=== PATIENT | male | born 1945 | race Caucasian/White ===

== ENCOUNTER → 2018-05-11 08:27 | Outpatient (CLI) | payer MEDICARE, OTHER, SELFPAY ==
[2018-05-11 09:32] LABS: Alanine Aminotransferase 36 U/L (12-78); Albumin Level 3.8 gm/dL (3.4-5.0); Albumin/Globulin Ratio 1.1 (1.1-1.8); Alkaline Phosphatase 66 U/L (46-116); Anion Gap 12.5 mEq/L (5-15); Aspartate Amino Transferase 17 U/L (15-37); Bilirubin,Total 1.1 mg/dL (0.2-1.0); Blood Urea Nitrogen 20 mg/dL (7-18); Calcium 9.4 mg/dL (8.5-10.1); Carbon Dioxide 32 mmol/L (21.0-32.0); Chloride 100 mmol/L (98-107); Chol/HDL Ratio 3.8 (1-3.5); Cholesterol 150 mg/dL (140-200); Creatinine,Serum 1.26 mg/dL (0.70-1.30); Estimated Glomerular Filt Rate 56 ml/min (>60); GFR (African American) 68 ML/MIN (>60); Globulin 3.4 gm/dl (1.3-3.2); Glucose 130 mg/dL (74-106); HDL Cholesterol 39 mg/dL (27-67); LDL Cholesterol 65 mg/dL (0-130); Potassium 3.5 mmoL/L (3.5-5.1); Sodium 141 mmol/L (136-145); Total Protein,Serum 7.2 gm/dL (6.4-8.2); Triglycerides 232 mg/dL (30-200); VLDL Cholesterol 46 mg/dL (0-40)
== END ==
PROVIDERS: Visit Provider Family Medicine
DX: I10 Essential (primary) hypertension (principal); E78.5 Hyperlipidemia, unspecified; R73.9 Hyperglycemia, unspecified
CPT/HCPCS: 36415; 80053; 80061; 83036

== ENCOUNTER 2020-04-15 21:37 | Emergency (ER) | payer MEDICARE, SELFPAY ==
[2020-04-15 21:38] VITALS: BP 137/73; PULSE 63; RESP 16; TEMP 37; O2SAT 96; BMI 36.6
--- NOTE | 2020-04-15 21:54 | XR_ITS ---
PROCEDURE: XR CHEST 2V Referring Doctor: Onofre Bryson Patient Age:74Y CLINICAL HISTORY: coughing congestion 2 days. COMPARISON: CR RIBUL3 [id number] VIEWS from 08/05/[address] CHEST WO CON from 04/15/2020 FINDINGS: PA and lateral chest performed and compared to a rib series from July 2014 No significant interval change. No new findings. Mild elevation right hemidiaphragm again noted with crowding markings lung bases bilaterally similar to previous study reflecting some mild basilar atelectasis or scarring particularly. Cardiomediastinal silhouette and pulmonary vascularity are within normal limits.. Heart upper normal in size the The lungs appear mildly hyperexpanded but stable/clear; without infiltrates, suspicious nodules, or definite pleural effusions. No acute bony abnormalities. IMPRESSION: Stable chest with nothing definitely acute Perhaps mild hyperexpansion On final review note subtle blunting at the posterior sulcus-nonspecific but could could reflect some mild pleural scarring and atelectasis/or possibly scant pleural fluid but equivocal. The CP angles is remain sharp and clear with no effusion evident here Dictated by: Heladio De Jesus MD 04/16/2020 06:28 Heladio De Jesus MD in [place] 04/16/2020 06:28
[2020-04-15 22:08] VITALS: BP 127/75; PULSE 61; RESP 16; O2SAT 93
--- NOTE | 2020-04-15 22:10 | HMH.EDURI ---
ED Disposition Clinical Impression: Bronchitis Sinusitis Qualifiers: Sinusitis location: maxillary Chronicity: acute Recurrence: not specified as recurrent Qualified Code(s): J01.00 - Acute maxillary sinusitis, unspecified Disposition: Home, Self-Care Condition on Discharge: Good Instructions: DI for Acute Bronchitis Additional Instructions: use meds and see pcp for follow up Prescriptions: levoFLOXacin [Levaquin 500mg tab] 500 mg PO DAILY #7 tab Transmission Status: Received by [id number] predniSONE [Prednisone 20mg Tab] 20 mg PO BID #10 tab Transmission Status: Received by [id number] Referrals: Tim De La Rosa MD [Primary Care Provider] - - Critical Care Critical Care Time: No Attestation: On 04/15/20, the high probability of a clinically significant, sudden or life threatening deterioration of the following system(s) required my full and direct attention, intervention and personal management. The time I documented below is in addition to time spent performing reported procedures but includes the following listed in this critical care notation. Medical Decision Making - Medical Records Medical records reviewed: Yes: I reviewed the patient's medical records. - Jack Inquiry Pt receiving controlled substance: No Vital Signs: 04/15/20 21:38 04/15/20 22:08 04/15/20 22:38 Temperature 98.6 F Temperature Source Oral Pulse Rate Pulse Rate [Right Brachial] 63 61 60 Respiratory Rate 16 16 16 Blood Pressure Blood Pressure [Right Arm] 137/73 127/75 124/69 Blood Pressure Mean [Right Arm] 94 92 87 02 Sat by Pulse Oximetry 96 93 L 96 Oxygen Delivery Method Room Air Room Air 04/15/20 23:00 04/16/20 00:23 Temperature 98.4 F Temperature Source Oral Pulse Rate 86 Pulse Rate [Right Brachial] 66 Respiratory Rate 16 14 Blood Pressure 128/73 Blood Pressure [Right Arm] 114/76 Blood Pressure Mean [Right Arm] 88 02 Sat by Pulse Oximetry 95 Oxygen Delivery Method Room Air - Lab Data Lab results reviewed: Yes: I reviewed the patient's lab results. Lab Results 04/15/20 22:00: WBC 22.8 H*, RBC 5.31, Hgb 16.2, Hct 47.6, MCV 89.7, MCH 30.6, MCHC 34.1, RDW 14.0, Plt Count 256, MPV 8.1, Neut % (Auto) 42.1, Lymph % (Auto) 53.1 H, [place] % (Auto) 3.4, Eos % (Auto) 0.8, Baso % (Auto) 0.6, Neut # (Auto) 9.6 H, Lymph # (Auto) 12.1 H, [place] # (Auto) 0.8, Eos # (Auto) 0.2, Baso # (Auto) 0.1, Total Counted 100, Neutrophils % (Manual) 56, Band Neutrophils % 1.0, Lymphocytes % (Manual) 38, Monocytes % (Manual) 2, Eosinophils % (Manual) 3, Platelet Estimate Normal, RBC Morphology Normal, ESR 20 04/15/20 22:00: Sodium 138, Potassium 3.1 L, Chloride 98, Carbon Dioxide 32 H, Anion Gap 11.1, BUN 18, Creatinine 1.40 H, Estimated Creat Clear 59, Estimated GFR 50 L, Est GFR ( Amer) 60, Glucose 124 H, Calcium 9.5, Total Bilirubin 0.8, AST 28, ALT 20, Alkaline Phosphatase 69, C-Reactive Protein 36.2 H, Total Protein 7.6, Albumin 4.3, Globulin 3.3 H, Albumin/Globulin Ratio 1.3, Procalcitonin 0.065 04/15/20 22:00: Influenza Type A Ag Negative, Influenza Type B Ag Negative 04/15/20 22:00: Group A Strep Rapid Negative 04/15/20 22:00: SARS-CoV-2 IgG Ab (Rapid) Negative, SARS-CoV-2 IgM Ab (Rapid) Negative Result diagrams: 04/15/20 22:00 04/15/20 22:00 Orders (Tests/Meds): ED MEDICATIONS Discontinued Medications Generic Name Dose Route Start Last Admin Trade Name Freq PRN Reason Stop Dose Admin Sodium Chloride 1,000 mls @ 999 mls/hr 04/15/20 22:00 04/15/20 22:52 Sod Chlor 0.9% 1000ml Bag IV 04/15/20 23:00 999 mls/hr .Q1H1M SARAH Administration Ceftriaxone Sodium 1 gm/ 50 mls @ 100 mls/hr 04/16/20 00:15 04/16/20 00:12 Sodium Chloride IV 04/30/20 00:14 100 mls/hr Q24H SARAH Administration Protocol Methylprednisolone Sodium Succinate 125 mg 04/15/20 21:54 04/15/20 22:52 Methylprednisolone Sod Succ 125mg Vial IV 04/15/20 21:55 125 mg ONCE
[2020-04-15 22:32] LABS: Basophils # 0.1 K/mm3 (0-0.2); Basophils % 0.6 % (0.1-2.0); Eosinophils # 0.2 K/mm3 (0.0-0.4); Eosinophils % 0.8 % (0.1-12.0); Hematocrit 47.6 % (42.0-52.0); Hemoglobin 16.2 g/dL (14.1-18.0); Lymphocytes # 12.1 K/mm3 (0.7-4.5); Lymphocytes % 53.1 % (10-50); Mean Corpuscular HGB Conc 34.1 g/dL (31.8-35.4); Mean Corpuscular Hemoglobin 30.6 pg (27.0-31.2); Mean Corpuscular Volume 89.7 fl (80-94); Mean Platelet Volume 8.1 fl (7.4-10.4); Monocytes # 0.8 K/mm3 (0.1-1.0); Monocytes % 3.4 % (1.7-9.3); Neutrophils # 9.6 K/mm3 (1.8-7.8); Neutrophils % 42.1 % (37.0-80.0); Platelet Count 256 K/mm3 (142-424); Red Blood Count 5.31 M/mm3 (4.60-6.20)
[2020-04-15 22:33] LABS: White Blood Count 22.8 K/mm3 (4.8-10.8)
[2020-04-15 22:35] LABS: MANUAL DIFFERENTIAL MANUAL DIFFERENTIAL (MANUAL DIFF)
[2020-04-15 22:38] VITALS: BP 124/69; PULSE 60; RESP 16; O2SAT 96
[2020-04-15 22:49] LABS: Alanine Aminotransferase 20 U/L (12-78); Albumin Level 4.3 g/dl (3.5-5.0); Albumin/Globulin Ratio 1.3 (1.1-1.8); Alkaline Phosphatase 69 U/L (38-126); Anion Gap 11.1 mEq/L (5-15); Aspartate Amino Transferase 28 U/L (17-59); Bilirubin,Total 0.8 mg/dl (0.2-1.3); Blood Urea Nitrogen 18 mg/dl (9-20); Calcium 9.5 mg/dl (8.4-10.2); Carbon Dioxide 32 mmol/L (22.0-30.0); Chloride 98 mmol/L (98-107); Creatinine Clearance Estimated 59 mL/min (50-200); Estimated Glomerular Filt Rate 50 ml/min (>60); GFR (African American) 60 ML/MIN (>60); Globulin 3.3 g/dL (1.3-3.2); Glucose 124 mg/dl (74-100); Potassium 3.1 mmoL/L (3.5-5.1); Sodium 138 mmol/L (136-145); Total Protein,Serum 7.6 g/dl (6.3-8.2)
[2020-04-15 22:52] LABS: Eosinophils % 3 % (0-3); Lymphocytes % 38 % (10-50); Monocytes % 2 % (2-9); Neutrophils % 56 % (42-76); Platelet Estimate Normal; RBC Morphology Normal; Total Cells Counted 100
[2020-04-15 22:54] LABS: C-Reactive Protein 36.2 mg/L (0-4)
--- NOTE | 2020-04-15 22:55 | CT_ITS ---
PROCEDURE: CT CHEST WO CON Referring Doctor: Onofre Bryson Patient Age:74Y CLINICAL INDICATION: cough/abn cxr COMPARISON: No exams were available for comparison TECHNIQUE: No IV contrast Helical axial images obtained with sagittal and coronal reformats. All CT scans at the facility use one or more dose reduction, viz: automated exposure control, ma/kV adjustment per patient size (including targeted exams where dose is matched to indication, i.e. head), or iterative reconstruction technique. FINDINGS: HEART: . upper normal heart size borderline cardiomegaly. No significant pericardial effusion. MEDIASTINAL AND HILAR STRUCTURES: No mediastinal or hilar mass evident. No dominant adenopathy. PULMONARY ARTERIES/aorta: .normal caliber and appearance of these vessels on this noncontrast study but lack of contrast prevents internal valuation of pulmonary arteries or aorta but they appear satisfactory on today's noncontrast study . LUNGS:. No mass or consolidation. . Increased markings at the RLL noted and most likely reflecting dependent atelectasis but this is seen most evident along the posterior aspect of the RLL but also LLL. There may be some minimal scarring in these regions associated. Scant pleural thickening and scarring at the posterior left lung base but no significant mass or consolidation PLEURAL SPACES: No significant pleural effusion. No evidence of pneumothorax. LYMPH NODES: A generous benign-appearing fatty. For example right axillary node measuring just over 3 cm length axillary lymph nodes. UPPER ABDOMEN: . fatty changes the liver. Right kidney: Numerous partially visualized prominent right renal cysts a 6.3 cm cyst at the anterior right kidney with assist a 5 cm cyst as well as a near 6 cm cyst of posterior right kidney Left kidney. 2.2 cm vague debris-filled cyst anterior left kidney but a may benefit from ultrasound to better support is benign cystic nature BONY STRUCTURES: No acute bony abnormalities apparent. No acute skeletal abnormalities or aggressive lesions mild multilevel degenerative changes spine the E.. IMPRESSION: No significant acute findings at the chest No focal pneumonia. No consolidation. No lung masses . Note only note what appears to be minimal dependent atelectasis along posterior aspect of lower lobes bilaterally. Scant chronic pleural thickening posterior left base likely present as well Mild fatty changes liver. Multiple generous right renal cyst, partially imaged . Upper normal thickness and density cyst at the anterior left kidney a 2.2 cm. These would benefit from renal ultrasound follow-up Dictated by: Heladio De Jesus MD 04/16/2020 09:48 Heladio De Jesus MD in [place] 04/16/2020 09:48
--- NOTE | 2020-04-15 22:55 | CT_ITS ---
PROCEDURE: CT SINUS WO CON Referring Doctor: Onofre Bryson Patient Age:74Y CLINICAL HISTORY: congestion/pain Nasal congestion face pain COMPARISON: No exams were available for comparison TECHNIQUE: No IV contrast Helical axial images obtained with axial sagittal and coronal reformats. All CT scans at the facility use one or more dose reduction, viz: automated exposure control, ma/kV adjustment per patient size (including targeted exams where dose is matched to indication, i.e. head), or iterative reconstruction technique. FINDINGS: Right maxillary sinus: Mild mucosal thickening most notable along medial wall and floor right maxillary sinus. Trace scattered mucosal thickening roof and laterally as well.. No air-fluid levels but.. There is mucosal thickening partially occluding the right ostiomeatal outflow pathway and complex but Left maxillary sinus: Left maxillary sinus well developed and clear. Left ostiomeatal complex widely patent and unremarkable. Ethmoid air cells: Moderate mucosal thickening ethmoid air cells bilaterally. Mucosal thickening most evident at the anterior ethmoid air cells and continues through there junction with the frontal sinuses. Frontal sinuses: Only mild mucosal thickening inferiorly at midline and at junction of frontal and ethmoid air cells Sphenoid sinus: Clear no mucosal thickening. Unremarkable Orbits:-unremarkable. Mastoid air cells: Well developed and clear. No mastoid effusion Middle ear and IAC's satisfactory. Unremarkable and symmetric. The cranial cervical junction region satisfactory. There are degenerative disc changes and developing cervical spondylosis of at C3/4, C4/5, C5/6. Findings are most notable at at C5/6 where there is broad base hypertrophic ridging, minimal broad-based hard disc to the left indenting the left aspect of the thecal sac and effacing cord but Scattered small nodes throughout the neck. Streak artifact from dental fillings of limits visualization of some regions, Mild deviation of the nasal septum slight convex to the left. Moderate engorgement of nasal turbinates. IMPRESSION: Mild mucosal thickening right maxillary sinus [id number] mucosal thickening ethmoid air cells,-most notable anteriorly ethmoid air cells.. Mild mucosal thickening from this point extending slightly to the floor of frontal sinuses No air-fluid levels nor prominent findings at the maxillary sinuses Moderate engorgement nasal turbinates, right more so than left. Minor deviation nasal septum. Dictated by: Heladio De Jesus MD 04/16/2020 13:11 Heladio De Jesus MD in [place] 04/16/2020 13:11
[2020-04-15 23:00] VITALS: BP 114/76; PULSE 66; RESP 16; O2SAT 95
[2020-04-15 23:01] LABS: Erythrocyte Sedimentation Rate 20 mm/hr (0-20)
[2020-04-15 23:07] LABS: Procalcitonin 0.065 ng/mL (0.0-2.0)
[2020-04-15 23:36] LABS: Strep Scrn Group A (Rapid) Negative (Negative)
[2020-04-16 00:23] VITALS: BP 128/73; PULSE 86; RESP 14; TEMP 36.9; O2SAT 96
[2020-04-16 00:25] LABS: Coronavirus 19 IgG Antibody Negative (Negative); Coronavirus 19 IgM Antibody Negative (Negative)
== END 2020-04-16 00:24 | disposition home or self-care (01) ==
PROVIDERS: Emergency Provider Emergency Medicine; PCP Family Medicine
DX: J20.9 Acute bronchitis, unspecified (principal); J01.00 Acute maxillary sinusitis, unspecified; Z86.73 Personal history of transient ischemic attack (TIA), and cerebral infarction without residual deficits; I10 Essential (primary) hypertension; Z01.84 Encounter for antibody response examination
CPT/HCPCS: 70486; 71046; 71250; 80053; 84145; 85007; 85025; 85651; 86140; 86328; 87275; 87276; 87430; 96365; 96375; 99284; U0003

== ENCOUNTER 2020-07-01 09:02 | Inpatient (IN) | payer MEDICARE, OTHER, SELFPAY ==
[2020-07-01] VITALS (8 sets, daily range): BP systolic 90–128; BP diastolic 55–68; PULSE 65–96; RESP 18–22; TEMP 36.6–37.3; O2SAT 94–99; BMI 33.3; BMI 32.4
--- NOTE | 2020-07-01 09:11 | XR_ITS ---
PROCEDURE: XR CHEST PORTABLE CLINICAL HISTORY: weakness COMPARISON: CT CT CHEST WO CON from 04/15/2020 CR XR CHEST 2V from 04/15/2020 FINDINGS: The cardiomediastinal silhouette and pulmonary vascularity are within normal limits. The lungs are clear without infiltrates, suspicious nodules, or pleural effusions. No acute bony abnormalities. IMPRESSION: No acute findings. Dictated by: Shine Dickson MD 07/01/2020 11:34 Shine Dickson MD in [place] 07/01/2020 11:34
--- NOTE | 2020-07-01 09:13 | HMH.EDGENADL ---
ED Disposition Clinical Impression: Septic shock Urinary tract infection Qualifiers: Urinary tract infection type: site unspecified Hematuria presence: with hematuria Qualified Code(s): N39.0 - Urinary tract infection, site not specified Disposition: Admitted As Inpatient Condition on Discharge: Serious Referrals: Tim De La Rosa MD [Primary Care Provider] - - Critical Care Critical Care Time: Yes Attestation: On 07/01/20, the high probability of a clinically significant, sudden or life threatening deterioration of the following system(s) required my full and direct attention, intervention and personal management. The time I documented below is in addition to time spent performing reported procedures but includes the following listed in this critical care notation. Vital system(s) involved:: Shock (Septic) My critical care processes included: Assessment & monitoring of V/S, Initial and Re-exams, Data Review/Interpretation, Coordinating Care, Medication Orders and management, Documentation Medical Decision Making - Jack Inquiry Pt receiving controlled substance: No Vital Signs: 07/01/20 09:02 07/01/20 09:39 07/01/20 10:15 Temperature 99.1 F Temperature Source Oral Pulse Rate [Apical] 96 H 84 80 Respiratory Rate 18 18 18 Blood Pressure [Right Arm] 102/56 L 92/55 L 100/55 L Blood Pressure Mean [Right Arm] 71 67 70 Blood Pressure Source [Right Arm] Automatic Cuff Blood Pressure Position [Right Arm] Sitting 02 Sat by Pulse Oximetry 94 L 94 L 94 L Oxygen Delivery Method Room Air Room Air 07/01/20 10:54 07/01/20 11:01 Temperature Temperature Source Pulse Rate [Apical] 82 84 Respiratory Rate 18 20 Blood Pressure [Right Arm] 90/56 L 94/56 L Blood Pressure Mean [Right Arm] 67 68 Blood Pressure Source [Right Arm] Blood Pressure Position [Right Arm] 02 Sat by Pulse Oximetry 94 L 96 Oxygen Delivery Method - Lab Data Lab Results 07/01/20 09:05: WBC 23.8 H*, RBC 5.26, Hgb 15.5, Hct 45.8, MCV 87.0, MCH 29.5, MCHC 33.9, RDW 14.2, Plt Count 216, MPV 8.7, Neut % (Auto) 58.2, Lymph % (Auto) 40.1, [place] % (Auto) 0.9 L, Eos % (Auto) 0.3, Baso % (Auto) 0.4, Neut # (Auto) 13.8 H, Lymph # (Auto) 9.5 H, [place] # (Auto) 0.2, Eos # (Auto) 0.1, Baso # (Auto) 0.1, Total Counted 100, Neutrophils % (Manual) 59, Lymphocytes % (Manual) 40, Monocytes % (Manual) 1 L, Platelet Estimate Normal, RBC Morphology Normal 07/01/20 09:05: Sodium 137, Potassium 3.3 L, Chloride 99, Carbon Dioxide 20 L, Anion Gap 21.3 H, BUN 19, Creatinine 1.30 H, Estimated Creat Clear 64, Estimated GFR 54 L, Est GFR ( Amer) 65, Glucose 182 H, Calcium 9.3, Total Bilirubin 2.0 H, AST 31, ALT 35, Alkaline Phosphatase 80, Troponin I < 0.01, Total Protein 7.3, Albumin 4.5, Globulin 2.8, Albumin/Globulin Ratio 1.6 07/01/20 09:05: Lactate 4.4 H 07/01/20 09:05: Procalcitonin 2.15 H 07/01/20 09:05: Chlamy pneumoniae PCR Not detected, Adenovirus (PCR) Not detected, B. pertussis DNA (PCR) Not detected, Coronavirus OC43 (PCR) Not detected, Coronavirus HKU1 (PCR) Not detected, Coronavirus 229E (PCR) Not detected, SARS-CoV-2 (PCR) Not detected, Coronavirus NL63 (PCR) Not detected, Human Metapneumovir PCR Not detected, Influenza A (H1) PCR Not detected, Influ A (H1N1/09) PCR Not detected, Influenza A (H3) PCR Not detected, Influenza Type A (PCR) Not detected, Influenza Type B (PCR) Not detected, M. pneumoniae (PCR) Not detected, Parainfluenza 1 (PCR) Not detected, Parainfluenza 2 (PCR) Not detected, Parainfluenza 3 (PCR) Not detected, Parainfluenza 4 (PCR) Not detected, RSV (PCR) Not detected, Entero/Rhino (PCR) Not detected 07/01/20 10:20: Urine Color Yellow, Urine Appearance Sl cloudy, Urine pH 5.5, Ur Specific [place] >= 1.030, Urine Protein 1+, Urine Glucose (UA) Negative, Urine Ketones Negative, Urine Blood 1+, Urine Nitrate Positive, Urine Bilirubin Negative, Urine Urobilinogen 0.2, Ur Leukocyte Esterase 2+ A, Urine RBC 5-10, Urine WBC 20-50, Ur Squamous E
--- NOTE | 2020-07-01 09:17 | PC.NURSE ---
rad at BS
[2020-07-01 09:23] LABS: Basophils # 0.1 K/mm3 (0-0.2); Basophils % 0.4 % (0.1-2.0); Eosinophils # 0.1 K/mm3 (0.0-0.4); Eosinophils % 0.3 % (0.1-12.0); Hematocrit 45.8 % (42.0-52.0); Hemoglobin 15.5 g/dL (14.1-18.0); Lymphocytes # 9.5 K/mm3 (0.7-4.5); Lymphocytes % 40.1 % (10-50); Mean Corpuscular HGB Conc 33.9 g/dL (31.8-35.4); Mean Corpuscular Hemoglobin 29.5 pg (27.0-31.2); Mean Platelet Volume 8.7 fl (7.4-10.4); Monocytes # 0.2 K/mm3 (0.1-1.0); Monocytes % 0.9 % (1.7-9.3); Neutrophils # 13.8 K/mm3 (1.8-7.8); Neutrophils % 58.2 % (37.0-80.0); Platelet Count 216 K/mm3 (142-424); Red Blood Count 5.26 M/mm3 (4.60-6.20); Red Cell Distribution Width 14.2 % (11.5-17.5); White Blood Count 23.8 K/mm3 (4.8-10.8)
[2020-07-01 09:26] LABS: MANUAL DIFFERENTIAL MANUAL DIFFERENTIAL (MANUAL DIFF)
[2020-07-01 09:28] LABS: Alanine Aminotransferase 35 U/L (12-78); Albumin Level 4.5 g/dl (3.5-5.0); Albumin/Globulin Ratio 1.6 (1.1-1.8); Alkaline Phosphatase 80 U/L (38-126); Anion Gap 21.3 mEq/L (5-15); Aspartate Amino Transferase 31 U/L (17-59); Blood Urea Nitrogen 19 mg/dl (9-20); Calcium 9.3 mg/dl (8.4-10.2); Carbon Dioxide 20 mmol/L (22.0-30.0); Chloride 99 mmol/L (98-107); Creatinine Clearance Estimated 64 mL/min (50-200); Estimated Glomerular Filt Rate 54 ml/min (>60); GFR (African American) 65 ML/MIN (>60); Globulin 2.8 g/dL (1.3-3.2); Glucose 182 mg/dl (74-100); Potassium 3.3 mmoL/L (3.5-5.1); Sodium 137 mmol/L (136-145); Total Protein,Serum 7.3 g/dl (6.3-8.2)
--- NOTE | 2020-07-01 09:29 | ECG_ITS ---
APPROVED REPORT Exam: Resting ECG HR:85 bpm ECG Measurements Heart Rate 85 AXES CO 172 P 48 QRSd 94 QRS 18 QT 350 T 18 QTc 416 Conclusion Normal sinus rhythm Nonspecific ST and T wave abnormality Abnormal ECG Electronically signed by : Sotero Anglin, 07/01/2020 20:24:35
[2020-07-01 09:32] LABS: Lactic Acid 4.4 mmol/L (0.7-2.1)
--- NOTE | 2020-07-01 09:33 | PC.NURSE ---
notified ER of critical lactic verbal order for sepsis bolus obtaind
[2020-07-01 09:40] LABS: Troponin I < 0.01 ng/ml (0.00-0.034)
[2020-07-01 09:45] LABS: Procalcitonin 2.15 ng/mL (0.0-2.0)
[2020-07-01 09:48] LABS: Lymphocytes % 40 % (10-50); Monocytes % 1 % (2-9); Neutrophils % 59 % (42-76); Platelet Estimate Normal; RBC Morphology Normal; Total Cells Counted 100
[2020-07-01 10:04] LABS: Adenovirus,PCR Not Detected (NotDetected); Bordetella Pertussis Not Detected (NotDetected); Chlamydophila Pneumoniae, PCR Not Detected (NotDetected); Coronavirus 19, PCR Not Detected (NotDetected); Coronavirus 229E Not Detected (NotDetected); Coronavirus NL63 Not Detected (NotDetected); Coronavirus OC43 Not Detected (NotDetected); Coronovirus HKU1,PCR Not Detected (NotDetected); Human Metapneumovirus Not Detected (NotDetected); Influenza A, PCR Not Detected (NotDetected); Influenza AH1, 2009 Not Detected (NotDetected); Influenza AH1, PCR Not Detected (NotDetected); Influenza AH3,PCR Not Detected (NotDetected); Influenza B, PCR Not Detected (NotDetected); Mycoplasma Pneumoniae, PCR Not Detected (NotDetected); Parainfluenza 1, PCR Not Detected (NotDetected); Parainfluenza 2, PCR Not Detected (NotDetected); Parainfluenza 3, PCR Not Detected (NotDetected); Parainfluenza 4, PCR Not Detected (NotDetected); Respiratory Syncytial Virus Not Detected (NotDetected); Rhinovirus/Enterovirus Not Detected (NotDetected)
[2020-07-01 10:35] LABS: Microscopic, Urine URINE MICROSCOPIC (MICROSCOPIC)
[2020-07-01 10:47] LABS: Appearance,Urine SL CLOUDY (Clear); Blood, Urine 1+ (Negative); Color,Urine YELLOW (Yellow); Glucose,Urine (UA) Negative (Negative); Ketones,Urine Negative (Negative); Leukocyte Esterase,Urine 2+ (Negative); Nitrate,Urine POSITIVE (Negative); PH,Urine 5.5 (5.0-8.5); Protein,Urine 1+ (Negative); Specific Gravity, Urine >= 1.030 (1.005-1.030); Urobilinogen,Urine 0.2 EU/dl (0.2)
[2020-07-01 10:48] LABS: Bilirubin,Urine Negative (Negative)
[2020-07-01 11:06] LABS: WBC,Urine 20-50 #/hpf (0-3)
--- NOTE | 2020-07-01 11:31 | HMH.PHAINT ---
MEDICATION RECONCILIATION COMPLETED ON PATIENT USING EXTERNAL FILL HISTORY FROM PHARMACY. -JOAQUINA RANDOLPH, KEVIND
--- NOTE | 2020-07-01 11:32 | HMH.PHAVTE ---
[facility] Pharm[facility] VTE Monitoring - Patient Demographics Admission date: 07/01/20 Report Date: 07/01/20 Time: 11:32 Allergies/Adverse Reactions: Patient Allergies No Known Allergies Allergy (Verified 07/12/18 09:10) Height: 1.65 m Weight: 90.718 kg Patient Problems: Current Active Problems Septic shock (Acute) Urinary tract infection (Acute) - VTE Risk Labs: VTE Related Lab Results Hgb 15.5 g/dL (14.1-18.0) 07/01/20 09:05 Hct 45.8 % (42.0-52.0) 07/01/20 09:05 Plt Count 216 K/mm3 (142-424) 07/01/20 09:05 BUN 19 mg/dl (9-20) 07/01/20 09:05 Creatinine 1.30 mg/dl (0.66-1.25) H 07/01/20 09:05 Estimated Creat Clear 64 mL/min (50-200) 07/01/20 09:05 - Prophylaxis VTE Prophylaxis Ordered?: Yes Types of VTE Prophylaxis: TEDS Knee High Location of Applied Device: Bilateral Lower Extremeties
--- NOTE | 2020-07-01 11:34 | PC.NURSE ---
report called to CHERRI Matthews on second floor at this time
--- NOTE | 2020-07-01 11:45 | PC.NURSE ---
pt arrived to room 204 via wheelchair
[2020-07-01 13:15] LABS: Reflex Lactic Add Lactic Reflex
[2020-07-01 13:44] LABS: Lactic Acid Follow Up (RFLX 1) 3.2 mmol/L (0.7-2.1)
[2020-07-01 15:34] LABS: Reflex Lactic (2 hrs) Add Lactic Reflex
--- NOTE | 2020-07-01 15:47 | HMH.ACPN2 ---
Internal Medicine - PN: Subj *Date: 07/01/20 *Time: 15:47 Interval history: 74-year-old white male admitted through the emergency room today with evidence of urinary tract infection and sepsis. He has been ill since yesterday having developed generalized weakness. He does have some chronic difficulty urinating he states. He has had no cough or congestion. In the emergency room his urine showed positive nitrates and white blood cells, his serum white blood cell count was elevated at 23.8, his potassium was low at 3.3, his elect gas it was elevated. His procalcitonin was elevated. He states that he feels much better now after admission and IV fluids. Cefepime was initiated IV. Exam Vital signs and Labs for Last 24 Hours: Temp Pulse Resp BP Pulse Ox 99.1 F 86 18 98/56 L 96 07/01/20 11:40 07/01/20 11:40 07/01/20 11:40 07/01/20 11:40 07/01/20 11:01 Laboratory Results - last 24 hr 07/01/20 09:05: WBC 23.8 H*, RBC 5.26, Hgb 15.5, Hct 45.8, MCV 87.0, MCH 29.5, MCHC 33.9, RDW 14.2, Plt Count 216, MPV 8.7, Neut % (Auto) 58.2, Lymph % (Auto) 40.1, [place] % (Auto) 0.9 L, Eos % (Auto) 0.3, Baso % (Auto) 0.4, Neut # (Auto) 13.8 H, Lymph # (Auto) 9.5 H, [place] # (Auto) 0.2, Eos # (Auto) 0.1, Baso # (Auto) 0.1, Total Counted 100, Neutrophils % (Manual) 59, Lymphocytes % (Manual) 40, Monocytes % (Manual) 1 L, Platelet Estimate Normal, RBC Morphology Normal 07/01/20 09:05: Sodium 137, Potassium 3.3 L, Chloride 99, Carbon Dioxide 20 L, Anion Gap 21.3 H, BUN 19, Creatinine 1.30 H, Estimated Creat Clear 64, Estimated GFR 54 L, Est GFR ( Amer) 65, Glucose 182 H, Calcium 9.3, Total Bilirubin 2.0 H, AST 31, ALT 35, Alkaline Phosphatase 80, Troponin I < 0.01, Total Protein 7.3, Albumin 4.5, Globulin 2.8, Albumin/Globulin Ratio 1.6 07/01/20 09:05: Lactate 4.4 H 07/01/20 09:05: Procalcitonin 2.15 H 07/01/20 09:05: Chlamy pneumoniae PCR Not detected, Adenovirus (PCR) Not detected, B. pertussis DNA (PCR) Not detected, Coronavirus OC43 (PCR) Not detected, Coronavirus HKU1 (PCR) Not detected, Coronavirus 229E (PCR) Not detected, SARS-CoV-2 (PCR) Not detected, Coronavirus NL63 (PCR) Not detected, Human Metapneumovir PCR Not detected, Influenza A (H1) PCR Not detected, Influ A (H1N1/09) PCR Not detected, Influenza A (H3) PCR Not detected, Influenza Type A (PCR) Not detected, Influenza Type B (PCR) Not detected, M. pneumoniae (PCR) Not detected, Parainfluenza 1 (PCR) Not detected, Parainfluenza 2 (PCR) Not detected, Parainfluenza 3 (PCR) Not detected, Parainfluenza 4 (PCR) Not detected, RSV (PCR) Not detected, Entero/Rhino (PCR) Not detected 07/01/20 10:20: Urine Color Yellow, Urine Appearance Sl cloudy, Urine pH 5.5, Ur Specific [place] >= 1.030, Urine Protein 1+, Urine Glucose (UA) Negative, Urine Ketones Negative, Urine Blood 1+, Urine Nitrate Positive, Urine Bilirubin Negative, Urine Urobilinogen 0.2, Ur Leukocyte Esterase 2+ A, Urine RBC 5-10, Urine WBC 20-50, Ur Squamous [place] Cells 5-10, Urine Bacteria None 07/01/20 13:28: Lactate 3.2 H I & O for Last 24 hours: Intake & Output 06/29/20 06/30/20 07/01/20 07/02/20 10:59 10:59 11:59 11:59 Intake Total 240 / 240 Balance 240 / 240 Weight - Constitutional no acute distress - *Routine HEENT Exam Head: Present: normocephalic Eye: Present: PERRL ENT: Present: mucous membranes dry - *Routine Respiratory Exam Present: rales (Few bibasilar more right than left. Otherwise clear.) - *Routine Cardiovascular Exam Present: RRR. Absent: ectopic - *Routine Abdominal Exam Present: soft. Absent: tenderness - *Routine Rectal Exam Visual: Present: normal rectal tone Prostate: Present: enlargement. Absent: tenderness - *Routine Extremities Exam Absent: edema - *Routine Neurological Exam Present: alert, oriented X3 Assessment and Plan (1) Benign prostatic hyperplasia with lower urinary tract symptoms Status: Acute Category: Medical Code(s): N40.1 - Benign prostatic hyper
[2020-07-01 16:10] LABS: Lactic Acid Follow up (RFLX 2) 2.6 mmol/L (0.7-2.1)
[2020-07-01 19:33] LABS: POC Glucose,Bedside 164 (70-110)
[2020-07-01 20:19] LABS: POC Glucose,Bedside 109 (70-110)
[2020-07-02 04:00] VITALS: BP 101/53; PULSE 86; RESP 22; TEMP 37.3; O2SAT 94
--- NOTE | 2020-07-02 04:26 | PC.NURSE ---
Pt. has had no episodes of n/v/d, dizziness, soa or pain this shift. Ambulates independently with gait and balance satisfactory. Reports feeling better tonight. No complaints at this time.
[2020-07-02 05:04] VITALS: BMI 33.5
[2020-07-02 06:07] LABS: Basophils # 0.1 K/mm3 (0-0.2); Basophils % 0.2 % (0.1-2.0); Eosinophils % 0.1 % (0.1-12.0); Hematocrit 39.4 % (42.0-52.0); Lymphocytes # 7.9 K/mm3 (0.7-4.5); Lymphocytes % 32.7 % (10-50); Mean Corpuscular HGB Conc 33.4 g/dL (31.8-35.4); Mean Corpuscular Hemoglobin 29.5 pg (27.0-31.2); Mean Corpuscular Volume 88.3 fl (80-94); Mean Platelet Volume 8.4 fl (7.4-10.4); Monocytes # 0.7 K/mm3 (0.1-1.0); Neutrophils # 15.5 K/mm3 (1.8-7.8); Platelet Count 156 K/mm3 (142-424); Red Blood Count 4.46 M/mm3 (4.60-6.20); Red Cell Distribution Width 14.2 % (11.5-17.5); White Blood Count 24.2 K/mm3 (4.8-10.8)
[2020-07-02 06:19] LABS: Anion Gap 10.2 mEq/L (5-15); Blood Urea Nitrogen 16 mg/dl (9-20); Carbon Dioxide 24 mmol/L (22.0-30.0); Chloride 103 mmol/L (98-107); Creatinine Clearance Estimated 87 mL/min (50-200); Estimated Glomerular Filt Rate 73 ml/min (>60); GFR (African American) 88 ML/MIN (>60); Glucose 119 mg/dl (74-100); Potassium 3.2 mmoL/L (3.5-5.1); Sodium 134 mmol/L (136-145)
[2020-07-02 06:42] LABS: POC Glucose,Bedside 113 (70-110)
[2020-07-02 06:47] LABS: MANUAL DIFFERENTIAL MANUAL DIFFERENTIAL (MANUAL DIFF)
--- NOTE | 2020-07-02 07:55 | HMH.HP ---
*Admission Date: 07/01/20 <Devika Duque - 07/02/20 08:27> *Chief complaint: Fever and weakness <Devika Duque - 07/02/20 08:27> *History of present illness: Mr. Back is a 74-year-old male who was admitted through the emergency room with fever, chills, and evidence of a urinary tract infection with sepsis. 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 He describes being ill since p.m. of 06/30/2020 at which time he developed generalized weakness, chills and diaphoresis. He did not take his temperature. He did take some ibuprofen. He does have some chronic difficulty urinating. He describes pauses with his stream and dysuria.. He denies any hematuria. He has experienced aching in hips and upper legs and dizziness. AM of admission he did drop to the floor and had difficulty with getting up due to leg weakness. He has had no cough or congestion. In the emergency room his urine showed positive nitrates and white blood cells. His serum white blood cell count was elevated at 23.8. His potassium was low at 3.3 and lactate was elevated. Procalcitonin was also elevated. Cefepime was initiated IV and he was given several boluses of IV fluids in the ER. This morning patient admits to feeling better. He states he did not sleep much due to hospital noises. He states he has no appetite and did not feel like eating any breakfast. He denies nausea and abdominal pain. He has been up to the bathroom without difficulty. He denies chest pain and shortness of breath. He did have a low-grade temperature of 99.2 this a.m. He states rectal exam by Dr. Stearns yesterday revealed an enlarged prostate. CBC this a.m. shows white blood cell count of 24,200. Blood culture preliminary shows gram-negative rods. Urine culture is pending. He remains on cefepime and IV fluids at 150 an hour. He is on sliding scale insulin and is receiving p.o. potassium. <Devika Duque - 07/02/20 08:27> [facility] History Medical History: Reports:: Cerebrovascular Accident (Right eye vision changes), Diabetes Mellitus Type 2, Hypertension Denies:: Cancer, Diabetes Mellitus Type 1, Internal Pacemaker, Lung Disease, MRSA, Seizures <Duque,Devika - 07/02/20 08:27> *Have you ever received a pneumonia vaccine?: No <Devika Duque 07/02/20 08:27> *Have you received a flu vaccine this season?: No <DuqueDevika kaplan 07/02/20 08:27> Comment:: Restless leg syndrome <Devika Duque 07/02/20 08:27> Other Surgeries: Yes: Colonoscopy, Other (Lesion excision). No: Pacemaker <Devika Duque 07/02/20 08:27> Amputation: No <Devika Duque 07/02/20 08:27> Fractures: No <Devika Duque 07/02/20 08:27> Comment: Laser surgery to right x5. <Devika Duque 07/02/20 08:27> - *Social History Last grade of school completed: High school graduate <Devika Duque 07/02/20 08:27> Smoking Status: Never smoker <Devika Duque 07/02/20 08:27> Alcohol Intake: never <Devika Duque 07/02/20 08:27> *Occupational Status:: retired <Devika Duque 07/02/20 08:27> Household Members: spouse <Devika Duque 07/02/20 08:27> *Travel in the last 8 weeks: None <Devika Duque 07/02/20 08:27> Family Hx:: Diabetes, Other (Dementia) <Devika Duque 07/02/20 08:27> Review of Systems - Constitutional Reports body ache(s), Reports chills, Reports fever(s), Reports headache(s), Reports weakness <Devika Duque 07/02/20 08:27> - Eyes Denies change in vision <Devika Duque 07/02/20 08:27> - ENT Reports dry mouth, Denies ear pain, Denies sore throat <Devika Duque 07/02/20 08:27> - *Cardiovascular Denies chest pain, Denies shortness of breath, Denies irregular heart rhythm, Denies leg swelling <Devika Duque 07/02/20 08:27> - *Respiratory Denies chest congestion, Denies cough, Denies shortness of breath <Devika Duque - 07/02/20 08:27> - *Gastrointestinal Denies abdominal pain, Denies change in jane
[2020-07-02 08:00] VITALS: BP 110/59; PULSE 89; RESP 16; TEMP 36.8; O2SAT 95
[2020-07-02 09:21] LABS: Lymphocytes % 16 % (10-50); Monocytes % 3 % (2-9); Neutrophils % 81 % (42-76); Platelet Estimate Normal; RBC Morphology Normal; Total Cells Counted 100
[2020-07-02 10:36] LABS: Hemoglobin 13.2 g/dL (14.1-18.0)
[2020-07-02 11:10] LABS: POC Glucose,Bedside 109 (70-110)
[2020-07-02 12:38] VITALS: BMI 33.6
[2020-07-02 16:00] VITALS: BP 118/68; PULSE 79; RESP 16; TEMP 36.8; O2SAT 96
[2020-07-02 17:40] LABS: POC Glucose,Bedside 125 (70-110)
--- NOTE | 2020-07-02 19:42 | PC.NURSE ---
PT IS RESTING IN BED. PT'S ONLY COMPLAINT T/O THE SHIFT IS THAT HE DOES NOT HAVE ANY APPETITE. AMBULATING TO THE BATHROOM. USING THE URINAL OCCASIONALLY. PT HAD 1 BOWEL MOVEMENT THIS SHIFT. VSS. LUNG SOUNDS CLEAR. ABDOMEN SOFT/NON TENDER WITH ACTIVE BOWEL SOUNDS. WILL CONTINUE TO MONITOR.
[2020-07-02 20:00] VITALS: BP 133/63; PULSE 78; RESP 17; TEMP 36.8; O2SAT 100
[2020-07-02 20:09] LABS: POC Glucose,Bedside 133 (70-110)
[2020-07-03 04:00] VITALS: BP 115/73; PULSE 77; RESP 16; TEMP 37.3; O2SAT 97
--- NOTE | 2020-07-03 04:10 | PC.NURSE ---
Pt A&O x4 and has slept well through the night. No complaints of pain. Pt has c/o of having very little appetite. Lungs are CTA, on room air. Bowel sounds x4, abd soft and nontender. Pt has been voiding independently per urinal. IV patent, NS @ 50. Pt able to ambulate independently. VSS, call light in reach, no concerns at this time.
[2020-07-03 05:29] VITALS: BMI 33.0
[2020-07-03 07:12] LABS: POC Glucose,Bedside 99 (70-110)
[2020-07-03 07:47] VITALS: BP 133/82; PULSE 85; RESP 19; TEMP 36.8; O2SAT 95
--- NOTE | 2020-07-03 08:28 | HMH.ACPN2 ---
<Devika Duque - Last Filed: 07/03/20 08:28> Internal Medicine - PN: Subj *Date: 07/03/20 *Time: 08:28 Interval history: Patient states he definitely feels better. Was able to eat breakfast this morning. He is taking fluids well. IV did infiltrate has been left out for now while awaiting final culture and lab results. He denies chest pain and shortness of breath. He is voiding QS. His bowels have moved. He has no further aching of hips or upper legs. He feels his legs are stronger and he walks without difficulty now. Labs are pending. Urine and blood cultures are positive for gram-negative narendra. Exam Vital signs and Labs for Last 24 Hours: Temp Pulse Resp BP Pulse Ox 98.3 F 85 19 133/82 95 07/03/20 07:47 07/03/20 07:47 07/03/20 07:47 07/03/20 07:47 07/03/20 07:47 Laboratory Results - last 24 hr 07/02/20 05:55: Hgb 13.2 L D, Total Counted 100, Neutrophils % (Manual) 81 H, Lymphocytes % (Manual) 16, Monocytes % (Manual) 3, Platelet Estimate Normal, RBC Morphology Normal 07/02/20 10:47: POC Glucose 109 07/02/20 17:25: POC Glucose 125 H 07/02/20 20:00: POC Glucose 133 H 07/03/20 05:37: POC Glucose 99 I & O for Last 24 hours: Intake & Output 06/30/20 07/01/20 07/02/20 07/03/20 10:59 11:59 11:59 11:59 Intake Total 5813 / 5813 2368 / 2368 Output Total 1310 / 1310 2675 / 2675 Balance 4503 / 4503 -307 / -307 Weight 209 lb 1 oz 205 lb 3 oz Microbiology Reports for the Last 24 Hours: Microbiology 07/01/20 09:05 Blood Blood Culture - Preliminary 07/01/20 10:20 Urine,Clean Catch Urine Culture - Preliminary Gram Negative Rods - Constitutional no acute distress - *Routine Respiratory Exam Present: CTA bilaterally (Anteriorly and posteriorly) - *Routine Cardiovascular Exam Present: RRR - *Routine Abdominal Exam Present: soft, normoactive bowel sounds. Absent: tenderness, distended - *Routine Extremities Exam Present: pulses intact. Absent: edema, calf tenderness - *Routine Neurological Exam Present: alert, oriented X3 - Routine Psychiatric Exam Present: normal affect Assessment and Plan (1) Benign prostatic hyperplasia with lower urinary tract symptoms Status: Acute Category: Medical Code(s): N40.1 - Benign prostatic hyperplasia with lower urinary tract symptoms (2) Septic shock Status: Acute Category: Medical Code(s): A41.9 - Sepsis, unspecified organism; R65.21 - Severe sepsis with septic shock (3) Urinary tract infection Status: Acute Qualifiers: Urinary tract infection type: site unspecified Hematuria presence: with hematuria Qualified Code(s): N39.0 - Urinary tract infection, site not specified; R31.9 - Hematuria, unspecified Category: Medical Code(s): N39.0 - Urinary tract infection, site not specified (4) Hypokalemia Status: Acute Category: Medical Code(s): E87.6 - Hypokalemia (5) Type 2 diabetes mellitus Status: Acute Category: Medical Code(s): E11.9 - Type 2 diabetes mellitus without complications - Assessment and plan all Dx Assessment and Plan for all problems:: Continue current care while waiting culture and laboratory results. <Tim De La Rosa - Last Filed: 07/03/20 08:58> Internal Medicine - PN: Subj *Date: 07/03/20 *Time: 08:58 Exam Vital signs and Labs for Last 24 Hours: Temp Pulse Resp BP Pulse Ox 98.3 F 85 19 133/82 95 07/03/20 07:47 07/03/20 07:47 07/03/20 07:47 07/03/20 07:47 07/03/20 07:47 Laboratory Results - last 24 hr 07/02/20 05:55: Hgb 13.2 L D, Total Counted 100, Neutrophils % (Manual) 81 H, Lymphocytes % (Manual) 16, Monocytes % (Manual) 3, Platelet Estimate Normal, RBC Morphology Normal 07/02/20 10:47: POC Glucose 109 07/02/20 17:25: POC Glucose 125 H 07/02/20 20:00: POC Glucose 133 H 07/03/20 05:37: POC Glucose 99 07/03/20 07:50: WBC 19.2 H, RBC 4.70, Hgb 14.1, Hct 41.9 L, MCV 89.1, MCH 30.0, MCHC 33.7, RDW
[2020-07-03 08:33] LABS: Basophils # 0.1 K/mm3 (0-0.2); Basophils % 0.2 % (0.1-2.0); Eosinophils # 0.2 K/mm3 (0.0-0.4); Eosinophils % 0.9 % (0.1-12.0); Hematocrit 41.9 % (42.0-52.0); Hemoglobin 14.1 g/dL (14.1-18.0); Lymphocytes # 8.6 K/mm3 (0.7-4.5); Lymphocytes % 44.7 % (10-50); Mean Corpuscular HGB Conc 33.7 g/dL (31.8-35.4); Mean Corpuscular Volume 89.1 fl (80-94); Mean Platelet Volume 8.6 fl (7.4-10.4); Monocytes # 0.7 K/mm3 (0.1-1.0); Monocytes % 3.8 % (1.7-9.3); Neutrophils # 9.6 K/mm3 (1.8-7.8); Neutrophils % 50.3 % (37.0-80.0); Platelet Count 188 K/mm3 (142-424); Red Cell Distribution Width 14.1 % (11.5-17.5); White Blood Count 19.2 K/mm3 (4.8-10.8)
[2020-07-03 08:36] LABS: Chloride 105 mmol/L (98-107); Potassium 3.3 mmoL/L (3.5-5.1); Sodium 137 mmol/L (136-145)
[2020-07-03 08:39] LABS: Anion Gap 10.3 mEq/L (5-15); Blood Urea Nitrogen 12 mg/dl (9-20); Carbon Dioxide 25 mmol/L (22.0-30.0); Creatinine Clearance Estimated 85 mL/min (50-200); Estimated Glomerular Filt Rate 82 ml/min (>60); GFR (African American) 100 ML/MIN (>60)
[2020-07-03 08:40] LABS: Calcium 8.7 mg/dl (8.4-10.2); Glucose 145 mg/dl (74-100)
[2020-07-03 08:54] LABS: MANUAL DIFFERENTIAL MANUAL DIFFERENTIAL (MANUAL DIFF)
[2020-07-03 09:58] LABS: Eosinophils % 1 % (0-3); Lymphocytes % 22 % (10-50); Monocytes % 5 % (2-9); Neutrophils % 72 % (42-76); Platelet Estimate Normal; RBC Morphology Normal; Total Cells Counted 100
[2020-07-03 11:42] LABS: POC Glucose,Bedside 123 (70-110)
--- NOTE | 2020-07-03 14:58 | PC.NURSE ---
PT IS RESTING IN BED. REQUESTED TO BE DISCONNECTED FROM IVF'S THIS MORNING SO HE COULD AMBULATE AROUND THE ROOM. NEW IV ACCESS NOTED TO THE LT HAND. PT STATES HE IS FEELING BETTER AND REALLY HOPING TO GO HOME TOMORROW. DRINKING WELL BUT STILL DOES NOT HAVE MUCH OF AN APPETITE. PT STATED HE HAD A BOWEL MOVEMENT THIS SHIFT. LUNG SOUNDS CLEAR. ABDOMEN SOFT/NON TENDER WITH HYPERACTIVE BOWEL SOUNDS. WILL CONTINUE TO MONITOR.
[2020-07-03 15:57] VITALS: BP 123/74; PULSE 77; RESP 17; TEMP 36.6; O2SAT 96
[2020-07-03 17:37] LABS: POC Glucose,Bedside 119 (70-110)
[2020-07-03 20:00] VITALS: BP 139/75; PULSE 77; RESP 16; TEMP 36.9; O2SAT 97
[2020-07-03 23:10] LABS: POC Glucose,Bedside 165 (70-110)
--- NOTE | 2020-07-04 03:26 | PC.NURSE ---
No acute changes. Pt requested to be SL except for antibiotic infusions this shift. Pt states it is easier for him to ambulate. Pt has denied any discomfort. VSS. Medications administered per mar. Call light within reach. Will continue to monitor.
[2020-07-04 04:00] VITALS: BP 133/77; PULSE 75; RESP 18; TEMP 36.8; O2SAT 95
[2020-07-04 05:32] VITALS: BMI 32.6
[2020-07-04 06:53] LABS: POC Glucose,Bedside 119 (70-110)
[2020-07-04 08:00] VITALS: BP 140/79; PULSE 82; RESP 18; TEMP 36.5; O2SAT 95
--- NOTE | 2020-07-04 08:16 | HMH.ACPN2 ---
<Devika Duque - Last Filed: 07/04/20 08:16> Internal Medicine - PN: Subj *Date: 07/04/20 *Time: 08:16 Interval history: Patient states he had a headache last night relieved with Tylenol. He has only able to sleep at intervals. He feels this is just due to hospital noises. He is voiding QS. His stream is steady now. His bowels move daily. He is eating better. He ambulates to the bathroom without difficulty. Denies any further leg weakness or aching. He also denies chest pain and shortness of breath. Exam Vital signs and Labs for Last 24 Hours: Temp Pulse Resp BP Pulse Ox 97.7 F 82 18 140/79 95 07/04/20 08:00 07/04/20 08:00 07/04/20 08:00 07/04/20 08:00 07/04/20 08:00 Laboratory Results - last 24 hr 07/03/20 07:50: WBC 19.2 H, RBC 4.70, Hgb 14.1, Hct 41.9 L, MCV 89.1, MCH 30.0, MCHC 33.7, RDW 14.1, Plt Count 188, MPV 8.6, Neut % (Auto) 50.3, Lymph % (Auto) 44.7, [place] % (Auto) 3.8, Eos % (Auto) 0.9, Baso % (Auto) 0.2, Neut # (Auto) 9.6 H, Lymph # (Auto) 8.6 H, [place] # (Auto) 0.7, Eos # (Auto) 0.2, Baso # (Auto) 0.1, Total Counted 100, Neutrophils % (Manual) 72, Lymphocytes % (Manual) 22, Monocytes % (Manual) 5, Eosinophils % (Manual) 1, Platelet Estimate Normal, RBC Morphology Normal 07/03/20 07:50: Sodium 137, Potassium 3.3 L, Chloride 105, Carbon Dioxide 25, Anion Gap 10.3, BUN 12, Creatinine 0.90, Estimated Creat Clear 85, Estimated GFR 82, Est GFR ( Amer) 100, Glucose 145 H, Calcium 8.7 07/03/20 11:09: POC Glucose 123 H 07/03/20 17:24: POC Glucose 119 H 07/03/20 21:01: POC Glucose 165 H 07/04/20 06:41: POC Glucose 119 H I & O for Last 24 hours: Intake & Output 07/01/20 07/02/20 07/03/20 07/04/20 11:59 11:59 11:59 11:59 Intake Total 5813 / 5813 2368 / 2368 720 / 720 Output Total 1310 / 1310 2675 / 2675 700 / 700 Balance 4503 / 4503 -307 / -307 Weight 209 lb 1 oz 205 lb 3 oz 203 lb 2 oz Microbiology Reports for the Last 24 Hours: Microbiology 07/01/20 09:05 Blood Blood Culture - Preliminary Citrobacter koseri 07/01/20 09:05 Blood Blood Culture - Preliminary Citrobacter koseri 07/01/20 10:20 Urine,Clean Catch Urine Culture - Final Citrobacter koseri - Constitutional no acute distress - *Routine Respiratory Exam Present: CTA bilaterally (Anteriorly and posteriorly) - *Routine Cardiovascular Exam Present: RRR - *Routine Abdominal Exam Present: soft, normoactive bowel sounds. Absent: tenderness - *Routine Extremities Exam Present: pulses intact. Absent: edema, calf tenderness - *Routine Neurological Exam Present: alert, oriented X3 Assessment and Plan (1) Benign prostatic hyperplasia with lower urinary tract symptoms Status: Acute Category: Medical Code(s): N40.1 - Benign prostatic hyperplasia with lower urinary tract symptoms (2) Septic shock Status: Acute Category: Medical Code(s): A41.9 - Sepsis, unspecified organism; R65.21 - Severe sepsis with septic shock (3) Urinary tract infection Status: Acute Qualifiers: Urinary tract infection type: site unspecified Hematuria presence: with hematuria Qualified Code(s): N39.0 - Urinary tract infection, site not specified; R31.9 - Hematuria, unspecified Category: Medical Code(s): N39.0 - Urinary tract infection, site not specified (4) Hypokalemia Status: Acute Category: Medical Code(s): E87.6 - Hypokalemia (5) Type 2 diabetes mellitus Status: Acute Category: Medical Code(s): E11.9 - Type 2 diabetes mellitus without complications - Assessment and plan all Dx Assessment and Plan for all problems:: Patient is stable to be discharged home on p.o. antibiotics. See discharge orders. <Tim De La Rosa - Last Filed: 07/20/20 13:23> Internal Medicine - PN: Maribel *Date: 07/20/20 *Time: 13:22 Exam Vital signs and Labs for Last 24 Hours: Temp Pulse R
[2020-07-04 09:02] LABS: Basophils # 0.1 K/mm3 (0-0.2); Basophils % 0.4 % (0.1-2.0); Eosinophils # 0.3 K/mm3 (0.0-0.4); Eosinophils % 1.7 % (0.1-12.0); Hematocrit 42.4 % (42.0-52.0); Hemoglobin 14.3 g/dL (14.1-18.0); Lymphocytes # 8.3 K/mm3 (0.7-4.5); Mean Corpuscular HGB Conc 33.8 g/dL (31.8-35.4); Mean Corpuscular Hemoglobin 29.7 pg (27.0-31.2); Mean Corpuscular Volume 87.9 fl (80-94); Monocytes # 0.6 K/mm3 (0.1-1.0); Monocytes % 3.8 % (1.7-9.3); Neutrophils # 6.7 K/mm3 (1.8-7.8); Neutrophils % 42.1 % (37.0-80.0); Platelet Count 229 K/mm3 (142-424); Red Blood Count 4.83 M/mm3 (4.60-6.20); Red Cell Distribution Width 14.2 % (11.5-17.5); White Blood Count 15.9 K/mm3 (4.8-10.8)
[2020-07-04 09:10] LABS: Chloride 101 mmol/L (98-107); Potassium 3.4 mmoL/L (3.5-5.1); Sodium 138 mmol/L (136-145)
[2020-07-04 09:11] LABS: MANUAL DIFFERENTIAL MANUAL DIFFERENTIAL (MANUAL DIFF)
[2020-07-04 09:13] LABS: Blood Urea Nitrogen 14 mg/dl (9-20); Creatinine Clearance Estimated 84 mL/min (50-200); Estimated Glomerular Filt Rate 73 ml/min (>60); GFR (African American) 88 ML/MIN (>60)
[2020-07-04 09:14] LABS: Anion Gap 11.4 mEq/L (5-15); Calcium 9.1 mg/dl (8.4-10.2); Carbon Dioxide 29 mmol/L (22.0-30.0); Glucose 151 mg/dl (74-100)
[2020-07-04 09:56] LABS: Eosinophils % 3 % (0-3); Lymphocytes % 36 % (10-50); Monocytes % 3 % (2-9); Neutrophils % 58 % (42-76); Total Cells Counted 100
[2020-07-04 09:57] LABS: Platelet Estimate Normal; RBC Morphology Normal
--- NOTE | 2020-07-04 14:51 | HMH.DCSUM ---
General - General Admission date:: 07/01/20 <Tim De La Rosa - 08/04/20 22:50> 07/01/20 <NetoDevika - 07/04/20 15:12> Discharge date: 07/04/20 <DuqueDevika kaplan - 07/04/20 15:12> HPI HPI: Mr. Back is a 74-year-old male who was admitted through the emergency room with fever, chills, and evidence of a urinary tract infection with sepsis. 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 He described being ill since p.m. of 06/30/2020 at which time he developed generalized weakness, chills and diaphoresis. He did not take his temperature. He did take some ibuprofen. He noted to have some chronic difficulty urinating. He described pauses with his stream and dysuria.. He denied any hematuria. He had experienced aching in hips and upper legs and dizziness. AM of admission he did drop to the floor and had difficulty with getting up due to leg weakness. He noted no cough or congestion. In the emergency room his urine showed positive nitrates and white blood cells. His serum white blood cell count was elevated at 23.8. His potassium was low at 3.3 and lactate was elevated. Procalcitonin was also elevated. Cefepime was initiated IV and he was given several boluses of IV fluids in the ER. The following morning patient admited to feeling better. He stated he did not sleep much due to hospital noises. He stated he had no appetite and did not feel like eating any breakfast. He denied nausea and abdominal pain. He had been up to the bathroom without difficulty. He denied chest pain and shortness of breath. He did have a low-grade temperature of 99.2. He stated rectal exam by Dr. Stearns yesterday revealed an enlarged prostate. Repeat CBC showed white blood cell count of 24,200. Blood culture preliminary showed gram-negative rods. Urine culture was pending. He remained on cefepime and IV fluids at 150 an hour. He was on sliding scale insulin and was receiving p.o. potassium. <NetoDevika - 07/04/20 15:12> Hospital Course Hospital Course: On admission cefepime and IV fluids at 150 an hour were continued. He was placed on sliding scale insulin for elevated blood sugars and was started on potassium p.o. for his hypokalemia. He did receive Tylenol as needed for headache and fever. Patient did feel better daily. He was able to begin to eat and was drinking more fluids. He was also able to ambulate in the room without leg weakness and body aches. He did have a headache at one time and received Tylenol for this. He continue with his IV fluids at 150 an hour and did void QS. His stream became steady and uninterrupted. Blood and urine cultures revealed Citrobacter koseri which was pansensitive. On 07/04/2020 patient was ready for discharge. He was discharged home in stable and satisfactory condition. He was to continue with antibiotics, p.o. Levaquin, with follow-up with Dr. De La Rosa on 07/10/2020. Other meds as per medication reconciliation sheet. See data for other labs and test results. <Devika Duque - 07/04/20 15:12> Objective Vital signs: Temp Pulse Resp BP Pulse Ox 97.7 F 82 18 140/79 95 07/04/20 08:00 07/04/20 08:00 07/04/20 08:00 07/04/20 08:00 07/04/20 08:00 <Tim De La Rosa - 08/04/20 22:50> Temp Pulse Resp BP Pulse Ox 97.7 F 82 18 140/79 95 07/04/20 08:00 07/04/20 08:00 07/04/20 08:00 07/04/20 08:00 07/04/20 08:00 <Devika Duque - 07/04/20 15:12> Narrative: Exam Vital signs and Labs for Last 24 Hours: Temp Pulse Resp BP Pulse Ox 97.7 F 82 18 140/79 95 07/04/20 08:00 07/04/20 08:00 07/04/20 08:00 07/04/20 08:00 07/04/20 08:00 Laboratory Results - last 24 hr 07/03/20 07:50: WBC 19.2 H, RBC 4.70, Hgb 14.1, Hct 41.9 L, MCV 89.1, MCH 30.0, MCHC 33.7, RDW 14.1, Plt Count 188, MPV 8.6, Neut % (Auto) 50.3, Lymph % (Auto) 44.7, Mon
== END 2020-07-04 09:16 | disposition home or self-care (01) | DRG 871 ==
LOC: ER 11:04 → 2ND 12:34
PROVIDERS: Nurse Practitioner Family; Admitting Provider Family Medicine; Emergency Provider Emergency Medicine; PCP Family Medicine; Visit Provider Family Medicine
DX: A41.9 Sepsis, unspecified organism (principal); R65.21 Severe sepsis with septic shock; N39.0 Urinary tract infection, site not specified; N40.1 Benign prostatic hyperplasia with lower urinary tract symptoms; E11.9 Type 2 diabetes mellitus without complications; Z79.84 Long term (current) use of oral hypoglycemic drugs; E87.6 Hypokalemia; R39.11 Hesitancy of micturition; I69.398 Other sequelae of cerebral infarction; B96.89 Other specified bacterial agents as the cause of diseases classified elsewhere; Z79.899 Other long term (current) drug therapy
CPT/HCPCS: 36415; 71045; 80048; 80053; 81001; 82962; 83605; 84145; 84484; 85007; 85025; 87040; 87077; 87086; 87088; 87186; 87581; 87633; 87798; 93005; 96365; 96367; 99285

== ENCOUNTER → 2020-09-25 07:19 | Outpatient (CLI) | payer MEDICARE, OTHER, SELFPAY ==
[2020-09-25 09:41] LABS: Blood Urea Nitrogen 17 mg/dl (9-20); Estimated Glomerular Filt Rate 73 ml/min (>60); GFR (African American) 88 ML/MIN (>60)
== END ==
PROVIDERS: Visit Provider Urology
DX: N40.1 Benign prostatic hyperplasia with lower urinary tract symptoms (principal)
CPT/HCPCS: 82565; 84520

== ENCOUNTER → 2020-10-08 09:39 | Outpatient (CLI) | payer MEDICARE, OTHER, SELFPAY ==
--- NOTE | 2020-10-08 09:39 | CT_ITS ---
PROCEDURE: CT ABDOMEN PELVIS W CON CLINICAL INDICATION: bph Enlarged prostate COMPARISON: No exams were available for comparison TECHNIQUE: IV Contrast: 75ML Isovue 370 Oral Contrast None Axial images obtained with sagittal and coronal reformats. All CT scans at the facility use one or more dose reduction, viz: automated exposure control, ma/kV adjustment per patient size (including targeted exams where dose is matched to indication, i.e. head), or iterative reconstruction technique. FINDINGS: LOWER THORAX: Mild atelectatic or fibrotic changes in the lung bases. ABDOMEN & PELVIS: Fatty liver. No focal liver lesion apparent. The spleen, adrenal glands, pancreas, and gallbladder have an unremarkable appearance. There is a small peripancreatic/portal lymph node superior to the head of the pancreas measuring 1.4 cm nonspecific. Other periportal nodes are present measuring up to 1.7 cm. There are bilateral renal cysts measuring up to 7.4 cm on the right. A nonobstructing 6 mm stone is present in the lower pole of the left kidney. There are at least 4 right renal cysts and 3 left renal cysts. No intestinal obstruction or free air. No evidence of appendicitis. There are few colonic diverticula in the descending and sigmoid colon. No evidence of diverticulitis. There is mild dilatation of the distal aspect of the right common iliac artery at 1.5 cm. Mild enlargement of the prostate at 5.1 by 4 cm. No pelvic adenopathy or abnormal fluid collection. Mild lumbar scoliosis convex left. IMPRESSION: No acute finding. Mild prostate enlargement Small periportal and peripancreatic lymph nodes nonspecific Bilateral renal cysts Left nephrolithiasis Dictated by: Shine Dickson MD 10/08/2020 11:07 Shine Dickson MD in [place] 10/08/2020 11:07
== END ==
PROVIDERS: PCP Family Medicine; Visit Provider Urology
DX: N40.1 Benign prostatic hyperplasia with lower urinary tract symptoms (principal)
CPT/HCPCS: 74177; Q9967

== ENCOUNTER → 2020-10-12 15:32 | Outpatient (CLI) | payer MEDICARE, OTHER, SELFPAY ==
[2020-10-12 16:42] LABS: Prostate Specific Ag Screen 2.9 ng/ml (0.0-4.0)
== END ==
PROVIDERS: Visit Provider Urology
DX: Z12.5 Encounter for screening for malignant neoplasm of prostate (principal)
CPT/HCPCS: 36415; G0103

== ENCOUNTER → 2020-12-11 16:15 | Outpatient (CLI) | payer MEDICARE, OTHER, SELFPAY | PROVIDERS: Visit Provider Urology | DX: N39.0 Urinary tract infection, site not specified (principal) | CPT/HCPCS: 87086; 87088; 87186 ==

== ENCOUNTER → 2021-02-04 16:33 | Outpatient (CLI) | payer MEDICARE, OTHER, SELFPAY | PROVIDERS: Visit Provider Urology | DX: N40.1 Benign prostatic hyperplasia with lower urinary tract symptoms (principal); B96.89 Other specified bacterial agents as the cause of diseases classified elsewhere | CPT/HCPCS: 87086; 87088; 87186 ==

== ENCOUNTER → 2021-09-23 16:46 | Outpatient (CLI) | payer MEDICARE, OTHER, SELFPAY | PROVIDERS: Visit Provider Urology | DX: R35.0 Frequency of micturition (principal); B96.89 Other specified bacterial agents as the cause of diseases classified elsewhere | CPT/HCPCS: 87086; 87088; 87186 ==

== ENCOUNTER → 2021-10-14 08:18 | Outpatient (CLI) | payer MEDICARE, OTHER, SELFPAY ==
[2021-10-14 09:36] LABS: Prostate Specific Ag Screen 2.5 ng/ml (0.0-4.0)
== END ==
PROVIDERS: PCP Family Medicine; Visit Provider Urology
DX: Z12.5 Encounter for screening for malignant neoplasm of prostate (principal)
CPT/HCPCS: 36415; G0103